=== PATIENT | male | born 1965 | race Caucasian/White ===

== ENCOUNTER 2021-12-02 09:40 | Inpatient (IN) | payer BC ==
[2021-12-02] MEDS ORDERED: fentaNYL (PF) 50 MCG/ML 2 ML AMP ONE (09:57)
[2021-12-02] MEDS ORDERED: HEPARIN SODIUM 1,000 UN/ML (10ML VL) ONE (09:58)
[2021-12-02] MEDS ORDERED: fentaNYL (PF) 50 MCG/ML 2 ML AMP IV ONE (10:00)
[2021-12-02] MEDS ORDERED: MIDAZOLAM 2 MG/2 ML VIAL IV ONE (10:00)
[2021-12-02] MEDS ORDERED: SODIUM CHLORIDE 0.9% 1,000 ML IV ONE (10:00)
[2021-12-02] MEDS ORDERED: LIDOCAINE 1% INJ 10MG/ML (20 ML MDV) SQ ONE (10:01)
[2021-12-02] MEDS ORDERED: VERAPAMIL SYRINGE (5 MG/10 ML) INTRAARTER ONE (10:02)
[2021-12-02] MEDS ORDERED: HEPARIN SODIUM 1,000 UN/ML (10ML VL) IV ONE (10:07)
[2021-12-02] MEDS ORDERED: TICAGRELOR 90 MG TAB ONE (10:18)
[2021-12-02] MEDS ORDERED: TICAGRELOR 90 MG TAB PO ONE (10:20)
[2021-12-02] MEDS ORDERED: IOPAMIDOL-370 125ML BTL INJ ONE (10:21)
[2021-12-02] MEDS: NITROGLYCERIN 1000MCG/10ML SYRINGE INTRACORON ONE ×2 (10:23→10:32)
[2021-12-02] MEDS ORDERED: IOPAMIDOL-370 100ML BTL INJ ONE (10:37)
--- NOTE | 2021-12-02 10:48 | P.CRDCN ---
History of Present Illness History of present illness: HISTORY OF PRESENTING ILLNESS This is a pleasant 56-year-old with past medical history significant for reported SD 2 in the past, previous tobacco abuse and untreated hypertension who presents secondary to chest pain that woke him up out of sleep. Chest pain is going on for approximately 1 hour prior to her presentation and presented to outside hospital in [place] and was found to have normal sinus rhythm with inferior ST elevations as well as elevation in V3 and therefore TPA was given and patient was transferred to [facility]. On presentation he was still having some 3 out of [address] chest pain with continued ST elevations. Therefore recommendations were for urgent heart catheterization. REVIEW OF SYSTEMS At the time of my exam: CONSTITUTIONAL: Denies fever or chills. CARDIOVASCULAR: +chest pain, no shortness of breath, orthopnea, PND or palpitations. RESPIRATORY: Denies cough. GASTROINTESTINAL: Denies abdominal pain, diarrhea, constipation, nausea or vomiting. MUSCULOSKELETAL: Denies myalgias. NEUROLOGIC: Denies numbness, tingling or weakness. ENDOCRINE: Denies fatigue, weight change, polydipsia or polyurina. GENITOURINARY: Denies burning, hematuria or urgency with micturation. HEMATOLOGIC: Denies history of anemia or bleeding. PHYSICAL EXAMINATION Vital signs reviewed. CONSTITUTIONAL: No apparent distress. HEENT: Head is normocephalic. Pupils are equal, round. Sclerae anicteric. Mucous membranes of the mouth are moist. No JVD. No carotid bruit. CHEST EXAMINATION: Lungs are clear to auscultation. No chest wall tenderness is noted on palpation or with deep breathing. HEART EXAMINATION: Regular rate and rhythm. S1, S2 heard. No murmurs, gallops or rub. ABDOMEN: Soft, nontender. Positive bowel sounds. EXTREMITIES: 2+ peripheral pulses, no lower extremity edema and no calf tenderness. NEUROLOGIC EXAMINATION: Patient is awake, alert and oriented x3. ASSESSMENT 1. Inferior STEMI status post TPA 2. Reported history of SD 2 however no prior catheterization or stenting per patient 3. Previous tobacco abuse 4. Hypertension PLAN Discussed with patient risks and benefits of heart catheterization. Urgent heart catheterization given ongoing chest pain and continued ST elevations. Check 2-D echo. Further recommendations to follow. Medications and Allergies Allergies Allergy/AdvReac Type Severity Reaction Status Date / Time No Known Allergies Allergy Verified 12/02/21 10:10 Physical Exam Vitals: Intake and Output 12/01/21 12/02/21 12/02/21 22:59 06:59 14:59 Intake Total 450 Balance 450 Intake: IV 450 Results Intake and Output 12/01/21 12/02/21 12/02/21 22:59 06:59 14:59 Intake Total 450 Balance 450 Intake: IV 450
--- NOTE | 2021-12-02 10:56 | P.PRCINT ---
Percutaneous Coronary Int. - Percutaneous Coronary Intervention Percutaneous Coronary Intervention: PROCEDURES PERFORMED: Left heart catheterization, bilateral coronary angiography, PCI RCA with 2.25 x 12 Xience proximally and 2.0 x 15mm Johnny ALFONSO distally INDICATION: Inferior STEMI HISTORY: Patient is a pleasant 56-year-old male who woke up with chest pain and was found have inferior ST elevation at outside hospital and received TPA and was transferred for heart catheterization. CONSENT:I have discussed the risks, benefits and alternative therapies for the above-mentioned procedure and for both sedation/analgesia as well as necessary blood product administration, if indicated, as they pertain to this patient. The patient has indicated understanding and acceptance of the risks and procedures discussed. PROCEDURE: After the risks, benefits and alternatives of the above mentioned procedure explained in detail with the patient, informed consent was obtained. Patient was taken to the catheterization lab and prepped and draped in usual fashion. 1% lidocaine was used to anesthetize the right radial artery. A 6- Kazakh sheath was placed in the right radial artery using modified Seldinger technique. Left coronary angiography was performed with a 5-Kazakh JL 3.5 catheter and right coronary angiography was performed with a 6-Kazakh AR 2 catheter in various views. A 5-Kazakh FR5 catheter was inserted into the left ventricle and pressure measurements were obtained. The decision was made to perform PCI of the RCA. A 0.014 BMW wire was advanced into the distal RCA. Predilation was performed with a 2.0 x 12 mm balloon. Intracoronary nitroglycerin was given without much improvement and neither lesions. Next a 2.25 x 12 mm Xience ALFONSO was placed at the proximal lesion. Next a 2.0 x 15 mm [place] ALFONSO was placed in the mid to distal RCA. Pre- intervention there was STEVEN 0 flow with 100% stenosis and postintervention there was STEVEN 3 flow with 0% stenosis. The wire was removed and final angiograms were performed. The right radial sheath was removed and a TR band was placed with hemostasis achieved. The patient tolerated the procedure well. Patient was transported back to the post catheterization holding area in stable condition. Conscious Sedation: Patient was monitored under the direct supervision of vision of myself for conscious sedation using Versed and fentanyl for a total duration of 50 minutes HEMODYNAMICS: [] SELECTIVE CORONARY ARTERIOGRAPHY: LEFT MAIN: The left main is a large caliber vessel which bifurcates into the LAD and circumflex. There is no significant stenosis. LEFT ANTERIOR DESCENDING CORONARY ARTERY: LAD is a large caliber vessel which wraps around to the apex. There are mild luminal irregularities of the proximal to mid LAD. There is a distal LAD 75-80% stenosis at the apex. LEFT CIRCUMFLEX CORONARY ARTERY: Left circumflex is a large caliber vessel without significant stenosis. The circumflex is dominant and supplies the PDA. There is 20-30% stenosis of the left PDA. RIGHT CORONARY ARTERY: The right coronary artery is a small caliber vessel which gives off a very small caliber PDA. There is 100% proximal RCA stenosis and then a second 80% mid to distal RCA lesion was noted once angioplasty was performed. FINAL IMPRESSION: 1. CAD as described above including 100% nondominant RCA stenosis and apical 75% LAD stenosis. 2. S/p successful PCI RCA with 2.25 x 12 Xience proximally and 2.0 x 15mm [place] ALFONSO distally 3. Normal left sided filling pressures PLAN: 1. Aggressive risk factor modification per most recent ACC/AHA guidelines. 2. Continue dual antiplatelets for 12 months. 3. Would treat apical LAD medically unless has recurrent angina.
[2021-12-02] MEDS ORDERED: RX INFO: IV CONTRAST WAS GIVEN 1 EACH MISC MISCELLANE PRN (10:59)
[2021-12-02] MEDS ORDERED: ZOLPIDEM 5 MG TAB PO PRN (10:59)
[2021-12-02] MEDS ORDERED: MAG HYDROX/AL HYDROX/SIMETH 30 ML CUP PO PRN (10:59)
[2021-12-02] MEDS ORDERED: NITROGLYCERIN SL TABS 0.4 MG TAB SUBLINGUAL PRN (10:59)
[2021-12-02] MEDS ORDERED: ATROPINE SULFATE 0.1 MG/ML 10ML SYRINGE IV PRN (10:59)
[2021-12-02 11:10] LABS: Glucose,Whole Blood 95 mg/dL (75-99)
--- NOTE | 2021-12-02 12:42 | P.HPIM ---
History of Present Illness H&P Date: 12/02/21 Chief Complaint: chest pain 56 year old man with history of HTN, HLD, ex smoker, and FHx of heart disease presented for chest pain. Pt says pain awoke him from sleep this morning. He presented to the ER in an outside facility, where he was found to have JUDE in inferior leads. He was gvien tPA and transferred to our facility for further management. He had ongoing chest pain upon arrival and was taken emergently to the director of cath lab where he underwent PCI to the RCA in two locations and rec'd a Xience ALFONSO via right radial approach. He was then sent to the iCU in stable condition. Pt reported resolution of the pain to me. Denies f, c, n/v, c/d, palps, dyspnea, cough, abd pain, numbness/weakness. Had hx of [place] before in his 30s, but never had angiogram or PCI. afebrile, 121/81, HR 98, 96% on room air. Labs pending. Review of Systems All Systems reviewed and pertinent positives and negatives noted in HPI, all other symptoms are negative Past Medical History Past Medical History: Myocardial Infarction (IN) Last Myocardial Infarction Date:: 12/02/2021 History of Any Multi-Drug Resistant Organisms: None Reported Past Surgical History: No Surgical Hx Reported Past Psychological History: No Psychological Hx Reported Smoking Status: Former smoker Past Alcohol Use History: Occasional Past Drug Use History: None Reported - Past Family History Father Family Medical History: Myocardial Infarction (IN) Medications and Allergies Allergies Allergy/AdvReac Type Severity Reaction Status Date / Time No Known Allergies Allergy Verified 12/02/21 10:10 Physical Exam Osteopathic Statement: *. No significant issues noted on an osteopathic structural exam other than those noted in the History and Physical/Consult. Vitals: Vital Signs Pulse Resp BP Pulse Ox 12/02/21 11:40 98 15 121/81 96 12/02/21 11:30 96 15 120/79 96 12/02/21 11:20 96 15 120/79 94 L 12/02/21 11:10 93 0 L 120/79 96 12/02/21 11:02 91 9 L Intake and Output 12/01/21 12/02/21 12/02/21 22:59 06:59 14:59 Intake Total 532 Output Total 0 Balance 532 Intake: IV 450 Intake, IV Titration 82 Amount Sodium Chloride 0.9% 1, 82 000 ml In Empty Bag 1 bag @ 1 ML/KG/HR 82 mls/hr IV .[id number] [facility] Rx#: [id number] Output: Urine 0 Other: Weight 82 kg Gen: awake, alert HEENT: normocephalic, atraumatic, good hearing acuity, moist mucous membranes Resp: good air exchange, breathing comfortably with no accessory muscle use CVS: good distal perfusion x 4, GI: soft, NTTP, ND : no SPT, no CVAT, coy catheter not present MSK: no pitting edema, no clubbing, radial access site has no evidence of bleed, secure TR band Neuro: non-focal, moving all extremities Psych: cooperative, euthymic mood Assessment and Plan Assessment: STEMI CAD HTN HLD -admit to ICU -cardiology consult -ASA, Brillinta, Statin -Metoprolol -trend trops to peak -obtain basic labs Full Code
[2021-12-02] MEDS: SODIUM CHLORIDE 0.9% 1,000 ML in EMPTY BAG 1 BAG IV SCH (13:19)
[2021-12-02] MEDS: TICAGRELOR 90 MG TAB PO SCH (20:56)
[2021-12-02] MEDS: METOPROLOL TARTRATE 25 MG TAB PO SCH (20:56)
[2021-12-02] MEDS: ATORVASTATIN 80 MG TAB PO SCH (20:56)
[2021-12-03 06:06] LABS: Basophils % (A) 0 %; Eosinophils # (A) 0.1 k/uL (0-0.7); Eosinophils % (A) 1 %; HCT 43.8 % (39.0-53.0); HGB 14.9 gm/dL (13.0-17.5); Lymphocytes # (A) 1.5 k/uL (1.0-4.8); Lymphocytes % (A) 27 %; MCH 33.5 pg (25.0-35.0); MCHC 34.1 g/dL (31.0-37.0); MCV 98.2 fL (80.0-100.0); Mean Platelet Volume 7.7; Monocytes # (A) 0.4 k/uL (0-1.0); Monocytes % (A) 7 %; Neutrophils # (A) 3.4 k/uL (1.3-7.7); Neutrophils % (A) 62 %; Platelet Count 136 k/uL (150-450); RBC 4.46 m/uL (4.30-5.90); WBC 5.5 k/uL (3.8-10.6)
[2021-12-03 07:03] LABS: African American GFR (CKD) >90 (>60 ml/min/1.73 sqM); Anion Gap 6 mmol/L; Blood Urea Nitrogen 12 mg/dL (9-20); Calcium 8.4 mg/dL (8.4-10.2); Carbon Dioxide 23 mmol/L (22-30); Chloride 108 mmol/L (98-107); Glucose 94 mg/dL (74-99); Non-African American GFR(CKD) >90 (>60 ml/min/1.73 sqM); Potassium 4.2 mmol/L (3.5-5.1); Sodium 137 mmol/L (137-145)
[2021-12-03] MEDS: ASPIRIN 81 MG PO SCH (08:52)
[2021-12-03] MEDS: TICAGRELOR 90 MG TAB PO SCH ×2 (08:52→20:30)
[2021-12-03] MEDS: METOPROLOL TARTRATE 25 MG TAB PO SCH (08:52)
[2021-12-03] MEDS: SODIUM CHLORIDE 0.9% 1,000 ML in EMPTY BAG 1 BAG IV SCH ×2 (09:58→16:44)
[2021-12-03] MEDS ORDERED: LOSARTAN 25 MG TAB PO SCH (11:15)
--- NOTE | 2021-12-03 11:56 | P.PN ---
Subjective Patient is stable from a cardiac standpoint No chest discomfort no dizziness no lightheadedness no palpitations Pulse rate in the 80s afebrile 97.9F normal respirations Blood pressure 143/84 mmHg Breath sounds are clear no rhonchi no crackles Normal heart sounds normal S1 normal S2 Abdomen is soft nontender Impression Inferior ST elevation [place] status post TPA Status post stenting, successful Hypertension Strong family history of CAD and [place] Drug-eluting stent to the culprit vessel proximal RCA Stenting to the distal RCA 2030% stenosis of the left PDA Distal LAD stenosis of 75-80% close to the apex Suggest 2-D echo and Doppler study Add losartan 25 mg daily and maximize Continue statins Add a very detailed discussion regarding the mechanism of acute block reduction and the importance of statins I will discontinue all natural products completely No indication for Vascepa given the recent data on prescription Fish oils Continue dual antiplatelet therapy Continue beta blockers Objective - Vital Signs Vital signs: Vital Signs Temp 97.9 F 12/03/21 09:00 Pulse 74 12/03/21 11:00 Resp 17 12/03/21 11:00 BP 139/92 12/03/21 11:00 Pulse Ox 98 12/03/21 11:00 Intake & Output 12/02/21 12/03/21 12/03/21 18:59 06:59 18:59 Intake Total 1912 1002 0 Output Total 1350 1000 650 Balance 562 2 -650 Weight 82 kg 82 kg Intake: IV 450 902 0 Sodium Chloride 0.9% 1, 902 0 000 ml In Empty Bag 1 bag @ 1 ML/KG/HR 82 mls/hr IV .[id number] [facility] Rx#: [id number] Intake, IV Titration 742 Amount Sodium Chloride 0.9% 1, 742 000 ml In Empty Bag 1 bag @ 1 ML/KG/HR 82 mls/hr IV .[id number] [facility] Rx#: [id number] Oral 720 100 Output: Urine 1350 1000 650 Other: # Voids 0 0 - Labs CBC & Chem 7: 12/03/21 05:15 12/03/21 05:15 Labs: Abnormal Lab Results - Last 24 Hours (Table) 12/03/21 12/03/21 Range/Units 05:15 05:15 Plt Count 136 L (150-450) k/uL Chloride 108 H (98-107) mmol/L
--- NOTE | 2021-12-03 12:46 | P.PN ---
Subjective Progress Note Date: 12/03/21 Pt doing well today, no complaints of pain, no arrhythmic events on tele since reperfusion. Objective - Vital Signs Vital signs: Vital Signs Temp 97.9 F 12/03/21 09:00 Pulse 74 12/03/21 11:00 Resp 17 12/03/21 11:00 BP 139/92 12/03/21 11:00 Pulse Ox 98 12/03/21 11:00 Intake & Output 12/02/21 12/03/21 12/03/21 18:59 06:59 18:59 Intake Total 1912 1002 0 Output Total 1350 1000 650 Balance 562 2 -650 Weight 82 kg 82 kg Intake: IV 450 902 0 Sodium Chloride 0.9% 1, 902 0 000 ml In Empty Bag 1 bag @ 1 ML/KG/HR 82 mls/hr IV .[id number] [facility] Rx#: [id number] Intake, IV Titration 742 Amount Sodium Chloride 0.9% 1, 742 000 ml In Empty Bag 1 bag @ 1 ML/KG/HR 82 mls/hr IV .[id number] [facility] Rx#: [id number] Oral 720 100 Output: Urine 1350 1000 650 Other: # Voids 0 0 - Exam Gen: awake, alert HEENT: normocephalic, atraumatic, good hearing acuity, moist mucous membranes Resp: good air exchange, breathing comfortably with no accessory muscle use CVS: good distal perfusion x 4, GI: soft, NTTP, ND : no SPT, no CVAT, coy catheter not present MSK: no pitting edema, no clubbing, radial access site has no evidence of bleed, secure TR band Neuro: non-focal, moving all extremities Psych: cooperative, euthymic mood - Labs CBC & Chem 7: 12/03/21 05:15 12/03/21 05:15 Labs: Abnormal Lab Results - Last 24 Hours (Table) 12/03/21 12/03/21 Range/Units 05:15 05:15 Plt Count 136 L (150-450) k/uL Chloride 108 H (98-107) mmol/L Assessment and Plan Assessment: STEMI CAD HTN HLD -admit to ICU--> transfer to the floor -cardiology consult -s/p LHC: ALFONSO to prox and mid RCA, 75% stenosis of apical LAD, 20-30% stenosis of LCx -ASA, Brillinta, Statin -Metoprolol -obtain echo Full Code
[2021-12-03 13:59] VITALS: BMI 27.4
[2021-12-03] MEDS ORDERED: LOSARTAN 25 MG TAB PO STA (16:17)
[2021-12-03] MEDS: METOPROLOL TARTRATE 50 MG TAB PO SCH (20:29)
[2021-12-03] MEDS: ATORVASTATIN 80 MG TAB PO SCH (20:30)
[2021-12-04] MEDS: SODIUM CHLORIDE 0.9% 1,000 ML in EMPTY BAG 1 BAG IV SCH (01:57)
[2021-12-04] MEDS: TICAGRELOR 90 MG TAB PO SCH (08:22)
[2021-12-04] MEDS: ASPIRIN 81 MG PO SCH (08:23)
[2021-12-04] MEDS: METOPROLOL TARTRATE 50 MG TAB PO SCH (08:23)
[2021-12-04] MEDS ORDERED: LOSARTAN 50 MG TAB PO SCH (09:00)
--- NOTE | 2021-12-04 11:04 | P.PN ---
Subjective Patient was resting comfortably in bed. No chest discomfort He's been ambulating around the room No dizziness no lightheadedness no undue shortness of breath On examination afebrile 98.4F pulse rate in the 60s and 70s blood pressure 130/98 mmHg Heart sounds S1 and S2 are normal no murmurs Breath sounds are clear no rhonchi no crackles No JVD Orthopnea Impression Acute ST elevation [place] status post stenting by Dr. Davison Hypertension Plan Patient stable for discharge today Follow-up with Dr. Davison in a week Completely off work for at least one week he sees Dr. Davison Home medications include Brilinta 90 mg twice daily plus aspirin Metoprolol tartrate 50 mg twice daily Losartan 50 mg daily Atorvastatin 80 mg by mouth daily The importance of statins was reemphasized Objective - Vital Signs Vital signs: Vital Signs Temp 98.4 F 12/04/21 08:00 Pulse 64 12/04/21 10:00 Resp 17 12/04/21 10:00 BP 130/98 12/04/21 08:00 Pulse Ox 97 12/04/21 08:00 Intake & Output 12/03/21 12/04/21 12/04/21 18:59 06:59 18:59 Intake Total 600 300 280 Output Total 1600 550 Balance -1000 -250 280 Weight 82 kg 82 kg Intake: IV 0 Sodium Chloride 0.9% 1, 0 000 ml In Empty Bag 1 bag @ 1 ML/KG/HR 82 mls/hr IV .[id number] [facility] Rx#: [id number] Oral 600 300 280 Output: Urine 1600 550 Other: # Voids 0 1 0 - Labs CBC & Chem 7: 12/03/21 05:15 12/03/21 05:15
[2021-12-04 11:51] VITALS: BP 146/95; PULSE 68; RESP 21; TEMP 97.9
--- NOTE | 2021-12-04 12:32 | P.DS ---
Providers Date of admission: 12/02/21 09:45 Expected date of discharge: 12/04/21 Attending physician: Jen Faust MD Consults: 12/02/21 10:56 Consult Physician Routine Consulting Provider: Jaycob Davison Consult Reason/Comments: STEMI Do you want consulting provider notified?: Already Contacted Placement Type Exists?: Yes 12/02/21 10:59 Consult Physician Routine Consulting Provider: [facility] Consult Reason/Comments: Post Interventional patient Do you want consulting provider notified?: Already Contacted Primary care physician: Naif Garcia MD Hospital Course: STEMI CAD HTN HLD -admitted to ICU after emergent LHC, which showed occlusive RCA disease, LAD disease, and non-occlusive LCx disease. ALFONSO x 2 used to open prox and mid RCA, 75% stenosis of apical LAD was not intervened on, 20-30% stenosis of LCx. Pt was transferred to the floor after 24 hours of monitoring in the ICU which did not demonstrate any post-CT complications. Patient treated medically with ASA, brillinta, statin, metoprolol. Losartan was added for HTN as well. Echo showed good EF with no WMA. Pt was discharged without immediate plans for LAD intervention given its apical location and complete resolution of pain with RCA intervention. I spent 33 minutes coordinating this complex discharge. Assessment: Gen: awake, alert HEENT: normocephalic, atraumatic, good hearing acuity, moist mucous membranes Resp: good air exchange, breathing comfortably with no accessory muscle use CVS: good distal perfusion x 4, GI: soft, NTTP, ND : no SPT, no CVAT, coy catheter not present MSK: no pitting edema, no clubbing, radial access site has no evidence of bleed or aneurysm Neuro: non-focal, moving all extremities Psych: cooperative, euthymic mood Patient Condition at Discharge: Good Plan - Discharge Summary Discharge Rx Participant: Yes New Discharge Prescriptions: New Atorvastatin [Lipitor] 80 mg PO HS #30 tab Nitroglycerin Sl Tabs [Nitrostat] 0.4 mg SUBLINGUAL Q5M PRN #15 tab PRN Reason: Chest Pain Metoprolol Tartrate [Lopressor] 50 mg PO BID #60 tab Ticagrelor [Brilinta] 90 mg PO BID #60 tab Losartan [Cozaar] 50 mg PO DAILY #30 tab Continue Multivit-Min/FA/Lycopen/Lutein [Centrum Silver Men Tablet] 1 tab PO DAILY Aspirin EC [Ecotrin Low Dose] 81 mg PO DAILY #30 tab Discontinued Vitamin K2 & D3 (Unknown Strength) 1 cap PO DAILY Vascepa 1gm 1 gm PO QID Glucosam/Kumar-Msm1/C/Addy/Bosw [Lcckixbnplw-Ahazvveqtyi-HOH Tb] 1 tab PO DAILY Methylsulfonylmethane [MSM] 900 mg PO DAILY Discharge Medication List Multivit-Min/FA/Lycopen/Lutein [Centrum Silver Men Tablet] 1 tab PO DAILY 12/02/21 [History] Aspirin EC [Ecotrin Low Dose] 81 mg PO DAILY #30 tab 12/04/21 [Rx] Atorvastatin [Lipitor] 80 mg PO HS #30 tab 12/04/21 [Rx] Losartan [Cozaar] 50 mg PO DAILY #30 tab 12/04/21 [Rx] Metoprolol Tartrate [Lopressor] 50 mg PO BID #60 tab 12/04/21 [Rx] Nitroglycerin Sl Tabs [Nitrostat] 0.4 mg SUBLINGUAL Q5M PRN #15 tab 12/04/21 [Rx] Ticagrelor [Brilinta] 90 mg PO BID #60 tab 12/04/21 [Rx] Follow up Appointment(s)/Referral(s): Naif Garcia MD [Primary Care Provider] - 1 Week (Please schedule your appoint ) Jaycob Davison DO [STAFF PHYSICIAN] - 1 Week (Dr Davison's office will call Patient with 1 week appointment) Patient Instructions/Handouts: Heart Attack (GEN), After Radial Heart Catheterization (GEN) Discharge Disposition: HOME SELF-CARE
== END 2021-12-04 14:10 | disposition home or self-care (01) | DRG 247 ==
LOC: 2SICU 09:45
PROVIDERS: ADMIT Internal Medicine; ATTEND Internal Medicine
PROC: B2111ZZ Fluoroscopy of Multiple Coronary Arteries using Low Osmolar Contrast (ICD-10-PCS; 2021-12-02)
PROC: 027035Z Dilation of Coronary Artery, One Artery with Two Drug-eluting Intraluminal Devices, Percutaneous Approach (ICD-10-PCS; principal; 2021-12-02 09:51)
PROC: 4A023N7 Measurement of Cardiac Sampling and Pressure, Left Heart, Percutaneous Approach (ICD-10-PCS; 2021-12-02 09:51)
DX: I21.11 ST elevation (STEMI) myocardial infarction involving right coronary artery (principal); E78.5 Hyperlipidemia, unspecified; I10 Essential (primary) hypertension; I25.10 Atherosclerotic heart disease of native coronary artery without angina pectoris; I25.2 Old myocardial infarction; Z82.49 Family history of ischemic heart disease and other diseases of the circulatory system; Z87.891 Personal history of nicotine dependence
CPT/HCPCS: 80048; 83735; 85025; 93306; 93458

== ENCOUNTER 2021-12-21 10:56 | Day surgery (SDC) | payer BC ==
[~2021-12-21 10:56] MED LIST: ALPRAZolam 0.25 MG TAB PO PRN; ALPRAZolam 0.5 MG TAB PO PRN; ASPIRIN 325 MG TAB PO STA; ATORVASTATIN 80 MG TAB PO STA; HEPARIN SODIUM,PORCINE 10,000 UNIT in SODIUM CHLORIDE 0.9% 1,000 ML IRRIGATION PRN; HEPARIN SODIUM,PORCINE 2,500 UNIT in SODIUM CHLORIDE 0.9% 250 ML IRRIGATION PRN; NITROGLYCERIN SL TABS 0.4 MG TAB SUBLINGUAL PRN; SODIUM CHLORIDE 0.9% 1,000 ML in EMPTY BAG 1 BAG IV SCH
[2021-12-21] MEDS ORDERED: SODIUM CHLORIDE 0.9% 1,000 ML IV ONE (11:08)
[2021-12-21] MEDS ORDERED: ASPIRIN 81 MG ONE (11:20)
[2021-12-21] MEDS ORDERED: LIDOCAINE 1% INJ 10MG/ML (20 ML MDV) ONE (11:28)
[2021-12-21] MEDS ORDERED: VERAPAMIL 2.5 MG/ML 2 ML AMP ONE (11:29)
[2021-12-21] MEDS ORDERED: HEPARIN SODIUM 1,000 UN/ML (10ML VL) ONE (11:29)
[2021-12-21 11:34] LABS: Basophils % (A) 1 %; Eosinophils # (A) 0.2 k/uL (0-0.7); Eosinophils % (A) 2 %; HCT 45.1 % (39.0-53.0); HGB 15.2 gm/dL (13.0-17.5); Lymphocytes # (A) 1.6 k/uL (1.0-4.8); Lymphocytes % (A) 22 %; MCH 33.5 pg (25.0-35.0); MCHC 33.8 g/dL (31.0-37.0); MCV 99.1 fL (80.0-100.0); Mean Platelet Volume 7.4; Monocytes # (A) 0.6 k/uL (0-1.0); Monocytes % (A) 8 %; Neutrophils # (A) 4.8 k/uL (1.3-7.7); Neutrophils % (A) 66 %; Platelet Count 222 k/uL (150-450); RBC 4.55 m/uL (4.30-5.90); WBC 7.3 k/uL (3.8-10.6)
[2021-12-21 11:42] VITALS: RESP 16
[2021-12-21 11:48] LABS: African American GFR (CKD) >90 (>60 ml/min/1.73 sqM); Anion Gap 5 mmol/L; Blood Urea Nitrogen 10 mg/dL (9-20); Calcium 9.2 mg/dL (8.4-10.2); Carbon Dioxide 26 mmol/L (22-30); Chloride 111 mmol/L (98-107); Glucose 95 mg/dL (74-99); Non-African American GFR(CKD) >90 (>60 ml/min/1.73 sqM); Potassium 4.5 mmol/L (3.5-5.1); Sodium 142 mmol/L (137-145)
[2021-12-21] MEDS ORDERED: fentaNYL (PF) 50 MCG/ML 2 ML AMP ONE (11:50)
[2021-12-21] MEDS ORDERED: MIDAZOLAM 2 MG/2 ML VIAL IV ONE (12:02)
[2021-12-21] MEDS ORDERED: fentaNYL (PF) 50 MCG/ML 2 ML AMP IV ONE (12:02)
[2021-12-21] MEDS ORDERED: LIDOCAINE 1% INJ 10MG/ML (20 ML MDV) SQ ONE (12:05)
[2021-12-21] MEDS ORDERED: VERAPAMIL SYRINGE (5 MG/10 ML) INTRAARTER ONE (12:07)
[2021-12-21] MEDS: HEPARIN SODIUM 1,000 UN/ML (10ML VL) IV ONE ×2 (12:09→13:11)
[2021-12-21] MEDS: NITROGLYCERIN 1000MCG/10ML SYRINGE INTRACORON ONE ×2 (12:13→12:51)
[2021-12-21] MEDS ORDERED: IOPAMIDOL-370 100ML BTL INJ ONE ×3 (12:31→13:05)
[2021-12-21] MEDS ORDERED: SODIUM CHLORIDE 0.9% 1,000 ML IV SCH (13:17)
--- NOTE | 2021-12-21 17:12 | P.PRCINT ---
Percutaneous Coronary Int. - Percutaneous Coronary Intervention Percutaneous Coronary Intervention: PROCEDURES PERFORMED: Left heart catheterization, bilateral coronary angiography, iFR RCA, iFR circumflex, iFR LAD, PCI LAD with 2.0 x 12mm [place] ALFONSO INDICATION: STEMI s/p PCI, staged PCI HISTORY: Patient is a pleasant 56 year old male with history of CAD with prior inferior STEMI s/p TPA and PCI RCA as well as residual apical LAD 75% stenosis. He initially was having back and shoulder pain which appeared to be his angina and has still been having some since his PCI. Therefore staged PCI was recommended. CONSENT:I have discussed the risks, benefits and alternative therapies for the above-mentioned procedure and for both sedation/analgesia as well as necessary blood product administration, if indicated, as they pertain to this patient. The patient has indicated understanding and acceptance of the risks and procedures discussed. PROCEDURE: After the risks, benefits and alternatives of the above mentioned procedure explained in detail with the patient, informed consent was obtained. Patient was taken to the catheterization lab and prepped and draped in usual fashion. 1% lidocaine was used to anesthetize the right radial artery. A 6- [place] sheath was placed in the right radial artery using modified Seldinger technique. Left coronary angiography was performed with a 6-[place] CLS 4.0 guide catheter and right coronary angiography was performed with a 5-[place] FR5 catheter in various views. The decision was made to perform iFR of the distal circumflex as this appeared to be a moderate to large caliber vessel before giving off a moderate caliber PDA with a 50% stenosis. Heparin was given for ACT greater than 250. A 0.014 pressure wire was advanced into the left main and normalized. The wire was then advanced 1-2 cm distal to the circumflex lesion and iFR was performed and was normal at 0.96. Next given persistent angina symptoms, the decision was made to performed iFR of the apical LAD. There was a small caliber diagonal branch 90% stenosis at the site of the apical LAD however the apical LAD appeared larger caliber and therefore iFR of the apical LAD was performed. The iFR wire was advanced into the apical LAD and was abnormal at 0.88. Therefore the decision was made to perform PCI of the apical LAD. A 2.0 x 12mm [place] ALFONSO was advanced and deployed. The wire was pulled and final angiograms were performed. Preintervention there was STEVEN 3 flow and 75% stenosis and post intervention there was STEVEN 3 flow and 0% stenosis. There was continued 90% stenosis of the jailed small caliber diagonal branch which was felt best treated medically. Finally the decision was made to perform iFR of the RCA. A 6-[place] AR2 guide was used to engage the RCA. A 0.014 iFR pressure wire was advanced and normalized. The iFR wire was advanced 1-2 cm distal to the proximal RCA 40-50% stenosis and iFR was performed and was normal at 0.99. The wire was then removed. The right radial sheath was removed and a TR band was placed with hemostasis achieved. The patient tolerated the procedure well. Patient was transported back to the post catheterization holding area in stable condition. Patient was noted to have frequent asymptomatic slow wide complex rhythm most consistent with VT throughout procedure. Conscious Sedation: Patient was monitored under the direct supervision of vision of myself for conscious sedation using Versed and fentanyl for a total duration of 60 minutes HEMODYNAMICS: AO: 136/73 LV: 134/1, LVEDP 6 SELECTIVE CORONARY ARTERIOGRAPHY: LEFT MAIN: The left main is a large caliber vessel which bifurcates into the LAD and circumflex. There is no stenosis. LEFT ANTERIOR DESCENDING CORONARY ARTERY: LAD is a large caliber vessel which wraps around to the apex. There are mild luminal irregularities of the proximal and mid LAD. There is a distal LAD 75% stenosis and a small caliber apical diagonal which had a 90% stenosis. LEFT CIRCUMFLEX CORONARY ARTERY: Left circumflex is a large caliber vessel which has mild luminal irregularities. The circumflex gives off the PDA and is the dominant vessel. There is a 50% distal circumflex stenosis before giving off a PDA. RIGHT CORONARY ARTERY: The right coronary artery is a small caliber vessel which is nondominant and gives off an acute marginal. There is a patent mid RCA stent. There is a 40-50% stenosis proximal to the RCA stent. FINAL IMPRESSION: 1. CAD as described above including 75% apical LAD stenosis s/p PCI apical LAD with a 2.0 x 12mm Johnny ALFONSO as well as 90% small caliber jailed diagonal branch. 2. iFR normal circumflex 50% stenosis and RCA 40-50% stenosis. 3. Low normal left sided filling pressures 4. Frequent wide complex rhythm at approximately 110 bpm frequently throughout the case most consistent with VT. 5. Patent RCA stent PLAN: 1. Aggressive risk factor modification per most recent ACC/AHA guidelines. 2. Continue dual antiplatelets for 12 months. 3. Would treat apical diagonal medically as is very small caliber as well as RCA and circumflex medically as iFR normal. 4. If patient continues to have angina with exertion may consider workup of arrhythmia as frequent VT noted during catheterization.
[2021-12-21 18:38] VITALS: BP 134/82; PULSE 70
== END 2021-12-21 17:31 | disposition home or self-care (01) ==
LOC: CATHCVL 10:56
PROVIDERS: ATTEND Internal Medicine
DX: I25.10 Atherosclerotic heart disease of native coronary artery without angina pectoris (principal); Z20.822 Contact with and (suspected) exposure to COVID-19
CPT/HCPCS: 93458; 93571; 93572; 80048; 85025; 87635; C9600; C1887 ×2; C1894; C1874; J2250; J2001; J3010; J1644; Q9967